=== PATIENT | female | born 1975 | race Caucasian/White ===

== ENCOUNTER 2017-06-05 19:21 | Emergency (ER) | payer OTHER ==
[~2017-06-05] VITALS: Ht 154.9 cm; Wt 129.7 kg
--- NOTE | ~2017-06-05 | CR181 ---
[facility] A Service of [facility] RADIOLOGY TEXT RESULTS PATIENT: LIZETH CEE LOCATION: SED : 73 UNIT #: [id number] AGE: [address]: Linda Olivarez SEX: F ORDER DR: [id number] [address] [address] [id number] E MR#: [id number] #: [id number] NAME: LIZETH CEE : 1975 SEX: F STUDY DATE/TIME: 06/05/2017 21:02 UNIT: SED ROOM: STUDY DESCRIPTION: CR Lumbar Spine 2 or 3 Views Attending Physician: Linda Olivarez Pa-C Ordering Physician: Linda Olivarez Pa-C Primary Care Physician: No Primary Care Physician MEDICAL IMAGING REPORT This report is preliminary unless electronic signature is present. EXAM Lumbar spine, 2 or 3 views. HISTORY Pain for 5 days in the low back, injured her back helping someone move. Bilateral lower extremity radicular symptoms. COMMENT AP, lateral lumbosacral views lumbar spine reviewed. No prior. Some limitation of the study by the patient's size. Sagittal alignment is normal. There is mild loss of intervertebral disc height L3-4 through L5-S1 and probably facet arthritis at least at the 5-1 level. Anterior endplate spondylosis is most prominent at L3-4 and L2-3. Also prominent anterior plate spondylosis at T11-12. No acute fracture or bone destruction. IMPRESSION Plain film evidence for multilevel lumbar degenerative disease but no acute fracture, bone destruction, or malalignment is suspected. If symptoms persist and more information is needed, patient is best assessed further with an MRI of the lumbar spine if a candidate. Dictated by... Malou Boykin M.D. THIS IS AN ELECTRONICALLY VERIFIED REPORT Malou Boykin M.D. at 06/06/2017 10:26 AM SAC/tmw [facility] A Service [facility] RADIOLOGY TEXT RESULTS PATIENT: LIZETH CEE LOCATION: [facility] : [birth year] UNIT #: [id number] AGE: [address]: Linda Olivarez SEX: F ORDER DR: TD: 06/06/2017 09:45 JOB #: [id number] MEDICAL IMAGING REPORT Page 1 of 1
[~2017-06-05 19:21] MED LIST: AMOXICILLIN PO; EPIPEN0.3 MG/0.1 IM; PREDNISONE50 MG PO; PROZAC PO; SENNA8.6 M3
[2017-06-05] MEDS ORDERED: BUSPAR15 M3 PO (19:47)
[2017-06-05] MEDS ORDERED: CELEXA20 MG PO (19:47)
[2017-06-05] MEDS ORDERED: WATER PILL (19:48)
[2017-06-05 20:47] LABS: URINE SOURCE CLEAN CATCH
[2017-06-05 20:49] LABS: URINE APPEARANCE CLEAR; URINE BILIRUBIN NEG (NEG); URINE BLOOD TRACE-LYSED (NEG); URINE COLOR YELLOW; URINE GLUCOSE NEG (NORM); URINE KETONE NEG (NEG); URINE LEUKOCYTE ESTERASE NEG (NEG); URINE NITRATE NEG (NEG); URINE PROTEIN NEG (NEG); URINE SPECIFIC GRAVITY <=1.005 (1.003-1.035); URINE UROBILINOGEN 0.2 MG/DL (NORM)
[2017-06-05 20:53] LABS: MICRO INDICATED? YES
[2017-06-05 20:55] LABS: CULTURE INDICATED? NO; URINE BACTERIA NEG (NEG); URINE SQUAMOUS EPITHELIAL CELL OCCAS /[HPF]; URINE WBC 0-2 /[HPF] (0-5)
== END 2017-06-05 22:36 | disposition home or self-care (01) ==
LOC: SED 19:21
PROVIDERS: Physician Assistant Medical
DX: M54.42 Lumbago with sciatica, left side (principal); I10 Essential (primary) hypertension; F41.9 Anxiety disorder, unspecified; Z98.890 Other specified postprocedural states; Z79.899 Other long term (current) drug therapy
CPT/HCPCS: 72100; 81003; 84703; 99283